=== PATIENT | male | born 1965 | race Caucasian/White ===

== ENCOUNTER 2018-04-24 04:25 | Emergency (ER) | payer OTHER, MEDICAID ==
[~2018-04-24] VITALS: Ht 188 cm; Wt 90.0 kg
[2018-04-24 04:35] VITALS: BP 113/67
[2018-04-24] MEDS ORDERED: IBUP-1986 PO (04:41)
[2018-04-24] MEDS ORDERED: LIDO700A32 TOP (04:41)
[2018-04-24] MEDS ORDERED: triamcinolone acetonide 40mg/ml inj IM ONE (04:50)
[2018-04-24] MEDS ORDERED: levoFLOXACIN 250mg tablet PO ONE (04:50)
[2018-04-24] MEDS ORDERED: methylPREDNISolone sod succ/PF 40mg inj. IV ONE (04:50)
[2018-04-24] MEDS ORDERED: ALBU8HFA PO (04:51)
[2018-04-24] MEDS ORDERED: LEVO500T89 PO (04:51)
== END 2018-04-24 05:10 | disposition home or self-care (01) ==
LOC: ER 04:26
DX: J44.9 Chronic obstructive pulmonary disease, unspecified (principal)
CPT/HCPCS: 93005; 96372; 96374; 99284; J2920; J3301

== ENCOUNTER 2018-04-25 02:44 | Emergency (ER) | payer OTHER, MEDICAID ==
[~2018-04-25] VITALS: Ht 188 cm; Wt 89.1 kg
[~2018-04-25 02:44] MED LIST: ALBU8HFA PO; IBUP-1986 PO; LEVO500T89 PO; LIDO700A32 TOP
[2018-04-25] MEDS ORDERED: ipratropium/albuterol 3ml nebule NEB ONE (03:15)
[2018-04-25 04:04] VITALS: BP 106/78
== END 2018-04-26 00:49 | disposition home or self-care (01) ==
LOC: ER 02:44
DX: J44.1 Chronic obstructive pulmonary disease with (acute) exacerbation (principal)
CPT/HCPCS: 71045; 93005; 94640; 94760; 99284